=== PATIENT | female | born 2005 | race Caucasian/White ===

== ENCOUNTER 2024-11-17 01:26 | Emergency (ER) | payer OTHER ==
[~2024-11-17] VITALS: Ht 170.2 cm; Wt 66.6 kg
[2024-11-17 01:26] VITALS: BP 149/83; PULSE 70; RESP 12; TEMP 98; O2SAT 98
--- NOTE | 2024-11-17 01:47 | ED.PDOC ---
HPI (NEURO) HPI Comments 19-year-old female history of migraines and headaches presents to the ED with chief complaint of headache. She notes headache started 1 day ago has been taking ibuprofen does note improvement requesting a note for work at this time. Denies any other symptoms denies fever chills worst headache of her life nausea vomiting slurred speech numbness or weakness. Time Seen by MD: 01:27 Reviewed Notes: Nurses Notes, Medications, Allergies Information Source: Patient Past Medical History Past Medical History (Other): Migraines Family History Family History: Reviewed,noncontributory to illness Social History Smoker: Non-Smoker Alcohol: Denies ETOH Use Drugs: Denies Drug Use Constitutional: denies: chills, diaphoresis, fatigue, fever, malaise, sweats, weakness, others EENTM: denies: blurred vision, double vision, ear bleeding, ear discharge, ear drainage, ear pain, ear ringing, eye pain, eye redness, hearing loss, mouth pain, mouth swelling, nasal discharge, nose bleeding, nose congestion, nose pain, photophobia, tearing, throat pain, throat swelling, voice changes, others Respiratory: denies: cough, hemoptysis, orthopnea, SOB at rest, shortness of breath, SOB with excertion, stridor, wheezing, others Cardiovascular: denies: chest pain, dizzy spells, diaphoresis, Dyspnea on exertion, edema, irregular heart beat, left arm pain, lightheadedness, palpitations, PND, syncope, others Gastrointestinal: denies: abdomen distended, abdominal pain, blood streaked bowels, constipated, diarrhea, dysphagia, difficulty swallowing, hematemesis, melena, nausea, poor appetite, poor fluid intake, rectal bleeding, rectal pain, vomiting, others Genitourinary: denies: abnormal vagina bleeding, burning, dyspareunia, dysuria, flank pain, frequency, hematuria, incontinence, pain, , vagina discharge, urgency, others Neurological: denies: dizziness, fainting, headache, left sided numbness, left sided weakness, numbness, paresthesia, pre-existing deficit, right sided numbness, right sided weakness, seizure, speech problems, tingling, tremors, weakness, others Musculoskeletal: denies: back pain, gout, joint pain, joint swelling, muscle pain, muscle stiffness, neck pain, others Integumetry: denies: bruises, change in color, change in hair/nails, dryness, laceration, lesions, lumps, rash, wounds, others Allergic/Immunocompromised: denies: Difficulty Healing, Frequent Infections, Hives, Itching, others Hematologic/Lymphatic: denies: anemia, blood clots, easy bleeding, easy bruising, swollen glands, others Endocrine: denies: excessive hunger, excessive sweating, excessive thirst, excessive urination, flushing, intolerance to cold, intolerance to heat, unexplained weight gain, unexplained weight loss, others Psychiatric: denies: anxiety, bipolar disorder, depression, hopeless, panic disorder, schizophrenia, sleepless, suicidal, others Physical Exam General Appearance: No Apparent Distress, Normal HEENT: Normal ENT Inspection, Pharynx Normal, TMs Normal Neck: Full Range of Motion, Non-Tender Respiratory: Lungs Clear, No Respiratory Distress, Normal Breath Sounds Cardiovascular: No Edema, No JVD, No Murmur, No Gallop, Normal Peripheral Pul ses, Regular Rate/Rhythm Breast Exam: Deferred Gastrointestinal: No Organomegaly, Non Tender, No Pulsatile Mass, Normal Bowel Sounds, Soft Genitalia: Deferred Pelvic: Deferred Rectal: Deferred Extremities: Normal capillary refill, Normal inspection, Normal range of motion, Non-tender, No pedal edema Musculoskeletal : Apperance: Normal Neurologic: Alert, No Motor Deficits, Normal Affect, Normal Mood, No Sensory Deficits Cerebellar Function: Normal Reflexes: Normal Skin: Dry, Normal Color, Warm Lymphatic: No Adenopathy Was a procedure done? Was a procedure done?: No Differential Diagnosis (SZ) Headache: Cluster, Migraine, Sinusitis, Trigeminal Neuralgia X-Ray, Labs, Meds, VS Vital Signs Date Time Temp Pulse Resp B/P (MAP) Pulse Ox O2 Delivery O2 Flow Rate FiO2 11/17/24 01:26 98.0 70 12 149/83 (105) 98 98.0 X-Ray, Labs, Meds, VS Comment Patient reports history of migraine she notes pain has improved she is requesting a note for work states she has ibuprofen at home which works she refused any medications or treatment at this time. Advised to rest increase p.o. fluids with electrolytes follow up with your PCP in 2-3 days as necessary ER return precautions given patient indicates understanding Time of 1ST Reevaluation: 01:46 Reevaluation 1ST: Improved Time of 2ND Reevaluation: 01:57 Reevaluation 2ND: Improved Patient Education/Counseling: Diagnosis, Prognosis, Need For Follow Up Family Education/Counseling: Diagnosis, No Family Present Departure 1 Departure Time of Disposition: 01:50 Impression: Primary Impression: Headache Qualified Codes: R51.9 - Headache, unspecified Disposition: 01 HOME / SELF CARE / HOMELESS Condition: Stable Discharged With: Self Critical Care Note Critical Care Time?: No Stability Stability form required: RAVEN Leach Nov 17, 2024 01:47
== END 2024-11-17 01:57 | disposition home or self-care (01) ==
LOC: ER 01:26
DX: G43.909 Migraine, unspecified, not intractable, without status migrainosus (principal)